=== PATIENT | male | born 1965 | race Caucasian/White ===

== ENCOUNTER 2019-07-29 06:26 | Emergency (ER) | payer BC, OTHER ==
[~2019-07-29] VITALS: Ht 180.3 cm; Wt 111.1 kg
[2019-07-29] MEDS ORDERED: KATERZIA1 MG/1 ML PO (06:46)
[2019-07-29] MEDS ORDERED: ASA81BEC PO (06:47)
[2019-07-29] MEDS ORDERED: ROSUVASTATIN CA10 MG PO (06:48)
[2019-07-29 07:09] LABS: ABSOLUTE NEUTROPHILS 3.3 thou/uL (1.4-8.2); BASOPHILS 0.8 % (0.0-2.0); EOSINOPHILS 1.4 % (0.0-3.0); HEMATOCRIT 45.4 % (42.0-52.0); HEMOGLOBIN 15.3 gm/dL (14.0-18.0); LYMPHOCYTES 38.5 % (24.0-44.0); MCH 31.3 pg (26.0-34.0); MCHC 33.8 g/dL (28.0-37.0); MCV 92.6 fL (80.0-100.0); PLATELET COUNT 239 thou/uL (150-400); POLYS 53.3 % (36.0-66.0); RDW 12.6 % (10.5-14.5); WBC 6.2 thou/uL (4.0-11.0)
[2019-07-29 07:19] LABS: ANION GAP 5 mmol/L (7-16); BUN 14 mg/dL (7-18); CALCIUM 9.2 mg/dL (8.5-10.1); CHLORIDE 101 mmol/L (98-107); CO2 29 mmol/L (21-32); GLUCOSE 122 mg/dL (74-106); POTASSIUM 3.8 mmol/L (3.5-5.1); SODIUM 135 mmol/L (136-145)
[2019-07-29 07:28] LABS: TROPONIN-I <0.06 ng/mL (<0.06)
[2019-07-29 07:57] VITALS: BP 145/80
--- NOTE | 2019-07-29 07:58 | EKG ---
[place] [address] [place] [address] ELECTROCARDIOGRAM REPORT Name: HECTOR GARNER Room #: [facility] [id number] Admission: 07/29/19 Attend Phys: Discharge: Date of : 69 Report #: [id number] THIS REPORT FOR: //name// [facility] ED Test Date: 2019-07-29 Test Time: 07:10:05 Pat Name: HECTOR GARNER Department: Room: Gender: M Leadite Man: ERIKA : 1965 Requested By: Bonilla Tejada Order Number: [id number] MD: Eddie Andrew Measurements Intervals [place] Rate: 75 P: 41 LA: 188 QRS: 21 QRSD: 85 T: 12 QT: 391 QTc: 437 Interpretive Statements Sinus rhythm Normal tracing No previous ECG available for comparison Electronically Signed On 07-29-2019 7:57:55 INSTRUCTIONAL DEVELOPER by Eddie Andrew [email or web address] <ELECTRONICALLY SIGNED> By: Eddie Andrew MD, [facility] 07/29/19 0757 0710 0710 Eddie Andrew MD, FACC /EPI
== END 2019-07-29 08:09 | disposition home or self-care (01) ==
LOC: ER 06:26
PROVIDERS: Emergency Medicine
DX: S20.212A Contusion of left front wall of thorax, initial encounter (principal); M25.512 Pain in left shoulder; I10 Essential (primary) hypertension; E78.00 Pure hypercholesterolemia, unspecified; V89.0XXA Person injured in unspecified motor-vehicle accident, nontraffic, initial encounter; Y93.89 Activity, other specified; Y92.89 Other specified places as the place of occurrence of the external cause; Y99.8 Other external cause status